=== PATIENT | male | born 1965 | race Hispanic/Latino ===

== ENCOUNTER 2016-12-25 19:37 | Inpatient (IN) | payer OTHER ==
--- NOTE | 2016-12-25 20:19 | ED PDOC ---
Arrival/HPI - General Historian: Patient - History of Present Illness Time/Duration: 1 week Symptom Onset: Gradual Symptom Course: Improving Quality: Aching, Dullness Severity Level: 6 Activities at Onset: Rest, Eating Context: Sitting <PARUL DEL TORO - Last Filed: 12/26/16 06:08> <Antoine Humphrey - Last Filed: 12/26/16 06:38> - General Chief Complaint: Abdominal Pain Time Seen by Provider: 12/25/16 19:48 - History of Present Illness Narrative History of Present Illness (Text): Patient is a 51 year old male who presents with complaints of abdominal pain and diarrhea which started 12/20 in the afternoon. Patient states he was at work and suddenly felt a sharp pain which was then followed by explosive diarrhea. Patient states the diarrhea was very dark with mucous. Patient states the next day he ate bananas in the morning which then triggered the same abdominal pain which was followed by diarrhea which this time was accompanied with bright red blood and mucous. States the following morning the same pain was present but this time had a solid bowel movement with blood. From 12/23 until 12/25 patient has had only one bowel movement which was non bloody and non mucosal. Does admit however to constant abdominal bloating and a dull ache which is non radiating, but localized diffusely through entire abdomen. States that discomfort is exacerbated with movement. . He states that these episodes of tarry diarrhea have occured monthly starting this year, but has not lasted this long. Patient admits to lack of appetite and decrease food intake. Patient has been keeping hydrated with water intake. Denies vomiting, headache, chest pain, shortness of breath, recent change in diet, sick contacts. PMD: Dr. Drew PMH: Hyperthyroid PSH: Spinal fusion FMH: Colon cancer- father Medications: none currently Allergies: NKDA 12/25/16 20:14 (PARUL DEL TORO) Past Medical History - Provider Review Nursing Documentation Reviewed: Yes - Psychiatric Hx Substance Use: No <PARUL DEL TORO - Last Filed: 12/26/16 06:08> Family/Social History - Physician Review Nursing Documentation Reviewed: Yes Family/Social History: Other Smoking Status: Never Smoked Hx Alcohol Use: No Hx Substance Use: No <PARUL DEL TORO - Last Filed: 12/26/16 06:08> <Antoine Humphrey - Last Filed: 12/26/16 06:38> Narrative Family History (Free Text): Colon Cancer: Father 12/25/16 20:39 (PARUL DEL TORO) Allergies/Home Meds <PARUL DEL TORO - Last Filed: 12/26/16 06:08> <KamAntoine - Last Filed: 12/26/16 06:38> Allergies/Adverse Reactions: Allergies No Known Allergies Allergy (Verified 12/25/16 19:47) Home Medications: Home Meds Medication Instructions Recorded Confirmed No Known Home Med 12/25/16 12/25/16 Review of Systems - Physician Review All systems were reviewed & negative as marked: Yes - Review of Systems Constitutional: Weight Change (5 lbs loss this week) Respiratory: absent: SOB Cardiovascular: absent: Chest Pain, Edema Gastrointestinal: Abdominal Pain, Stool Changes, Diarrhea, Nausea, Food Intolerance. absent: Vomiting Musculoskeletal: Back Pain Skin: absent: Rash, Pruritis Neurological: absent: Headache, Dizziness Psychiatric: absent: Anxiety <PARUL DEL TORO - Last Filed: 12/26/16 06:08> Physical Exam Vital Signs Reviewed: Yes Temperature: Afebrile Blood Pressure: Normal Pulse: Regular Respiratory Rate: Normal Appearance: Positive for: Well-Appearing Pain Distress: Moderate Mental Status: Positive for: Alert and Oriented X 3 - Systems Exam Head: Present: Atraumatic, Normocephalic Mouth: Present: Moist Mucous Membranes Respiratory/Chest: Present: Clear to Auscultation, Good Air Exchange Cardiovascular: Present: Regular Rate and Rhythm, Normal S1, S2 Abdomen: Present: Tenderness, Other (hyperactive bowel sounds) Lower Extremity: No: Edema Neurological: Present: CN II-XII Intact Skin: Present: Warm, Normal Color Psychiatric: Present: Alert, Oriented x 3 <PARUL DEL TORO - Last Filed: 12/26/16 06:08> Medical Decision Making - Lab Interpretations I have reviewed the lab results: Yes <PARUL DEL TORO - Last Filed: 12/26/16 06:08> - Lab Interpretations I have reviewed the lab results: Yes <Antoine Humphrey - Last Filed: 12/26/16 06:38> ED Course and Treatment: Assessment 51 year old male with complaints of abdominal pain and bloody diarrhea Plan - CT abdomen , results pending - CBC, CMP results pending - PT/PTT 12/25/16 20:42 12/25/16 21:40 (PARUL DEL TORO) Impression: Pt seen and evaluated with medical officer. Pt, whose past medical history includes hyperthyroidism, presented complaining of sharp abdominal pain and diarrhea/bright red hematochezia for 5 days. Aware and agree with HPI, clinical finding, plan, and management. Plan: - CT Abdomen and Pelvis -- Labs, T4, TSH -- Reassess and disposition 12/26/16 00:[address] Drew, who is aware and agrees with plan. Accepts pt in to his service. (Antoine Humphrey) - Lab Interpretations Lab Results: 12/25/16 20:30 12/25/16 20:30 Lab Results 12/25/16 20:30: PT 11.1, INR 1.03, APTT 29.2 12/25/16 20:30: Thyroxine (T4) 9.3, TSH 3rd Generation 1.51 12/25/16 20:30: Sodium 143, Potassium 3.6, Chloride 103, Carbon Dioxide 29, Anion Gap 15, BUN 14, Creatinine 0.8, Est GFR ( Amer) > 60, Est GFR (Non- Af Amer) > 60, Random Glucose 92, Calcium 9.1, Phosphorus 3.1, Magnesium 2.0, Total Bilirubin 0.4, AST 26, ALT 31, Alkaline Phosphatase 49, Total Protein 7.0 , Albumin 4.1, Globulin 3.0, Albumin/Globulin Ratio 1.4 12/25/16 20:30: WBC 5.7, RBC 4.34, Hgb 13.5 L, Hct 38.6 L, MCV 88.9, MCH 31.1, MCHC 35.0, RDW 12.2, Plt Count 235, MPV 9.5, Gran % 52.8, Lymph % (Auto) 36.6 H , [place] % (Auto) 9.1 H, Eos % (Auto) 1.2 L, Baso % (Auto) 0.3, Gran # 3.03, Lymph # 2.1, [place] # 0.5, Eos # 0.1, Baso # 0.02 - RAD Interpretation Radiology Orders: 12/25/16 20:20 ABDOMEN & PELVIS [ABD PELVIS PO & IV CONTRAST] [CT] Stat - Medication Orders Current Medication Orders: Sodium Chloride (Sodium Chloride 0.9%) 1,000 mls @ 100 mls/hr IV .Q10H STA Stop: 12/26/16 10:57 Last Admin: 12/26/16 01:34 Dose: 100 mls/hr Morphine Sulfate (Morphine) 2 mg IVP Q4H PRN PRN Reason: Pain, moderate (4-7) Ondansetron HCl (Zofran Inj) 4 mg IVP Q4H PRN PRN Reason: Nausea/Vomiting Discontinued Medications Metronidazole (Flagyl) 500 mg in 100 mls @ 100 mls/hr IVPB STAT STA PRN Reason: Protocol Stop: 12/26/16 01:12 Last Admin: 12/26/16 01:34 Dose: 100 mls/hr Ceftriaxone Sodium (Rocephin 1 Gram Ivpb) 1 gm in 100 mls @ 200 mls/hr IVPB STAT STA PRN Reason: Protocol Stop: 12/26/16 00:42 Last Admin: 12/26/16 00:27 Dose: 200 mls/hr Iohexol (Omnipaque 240 (50 Ml)) Confirm Administered Dose 50 ml .ROUTE .STK-MED ONE Stop: 12/25/16 20:42 Iohexol (Omnipaque 350 100 Ml) Confirm Administered Dose 350 mg .ROUTE .STK-MED ONE Stop: 12/25/16 22:38 - PA / FINISHER CARD TENDER / Resident Statement /DO has examined the patient and agrees with the treatment plan. <Antoine Humphrey - Last Filed: 12/26/16 06:38> Disposition/Present on Arrival - Present on Arrival Any Indicators Present on Arrival: No History of DVT/PE: No History of Uncontrolled Diabetes: No Urinary Catheter: No History of Decub. Ulcer: No History Surgical Site Infection Following: None - Disposition Have Diagnosis and Disposition been Completed?: Yes Disposition Time: 00:50 Patient Plan: Admission <PARUL DEL TORO - Last Filed: 12/26/16 06:08> - Present on Arrival Any Indicators Present on Arrival: No - Disposition Have Diagnosis and Disposition been Completed?: Yes <Antoine Humphrey - Last Filed: 12/26/16 06:38> - Disposition Diagnosis: Diverticulitis Disposition: HOSPITALIZED Patient Problems: Current Active Problems Problem Status Onset Diverticulitis Acute Condition: STABLE
[2016-12-25] MEDS ORDERED: Iohexol 240 (50 ml) ONE (20:41)
[2016-12-25 20:56] LABS: BASO # 0.02 K/mm3 (0.0-2.0); BASO % 0.3 % (0.0-3.0); EOS # 0.1 (0.0-0.7); EOS % 1.2 % (1.5-5.0); GRAN # 3.03 (1.4-6.5); GRAN % 52.8 % (50.0-68.0); HEMATOCRIT 38.6 % (42.0-52.0); LYMPH # 2.1 (1.2-3.4); LYMPH % 36.6 % (22.0-35.0); MEAN CELL VOLUME 88.9 fl (80.0-105.0); MEAN CORPUSCULAR HEMOGLOBIN 31.1 pg (25.0-35.0); MEAN PLATELET VOLUME 9.5 fl (7.0-11.0); MONO # 0.5 (0.1-0.6); MONO % 9.1 % (1.0-6.0); RED CELL DISTRIBUTION WIDTH 12.2 % (11.5-14.5); WHITE BLOOD COUNT 5.7 10^3/ul (4.5-11.0)
[2016-12-25 21:02] LABS: ALB/GLOB RATIO 1.4 (1.1-1.8); ALKALINE PHOSPHATASE 49 U/L (38-126); ALT/SGPT 31 U/L (7-56); AST/SGOT 26 U/L (17-59); BILIRUBIN,TOTAL 0.4 mg/dL (0.2-1.3); BLOOD UREA NITROGEN 14 mg/dL (7-21); CALCIUM 9.1 mg/dL (8.4-10.5); CARBON DIOXIDE 29 mmol/L (21-33); CHLORIDE 103 mmol/L (98-107); GFR AFRICAN-AMERICAN > 60; GLUCOSE,RANDOM 92 mg/dL (70-110); INR 1.03 (0.93-1.08); PARTIAL THROMBOPLASTIN TIME 29.2 Seconds (23.7-30.8); PHOSPHOROUS 3.1 mg/dL (2.5-4.5); POTASSIUM 3.6 mmol/L (3.6-5.0); SODIUM 143 mmol/L (132-148)
[2016-12-25 21:17] LABS: T4 9.3 ug/dL (5.5-11.0)
[2016-12-25 21:31] LABS: THYROID STIMULATING HORMONE 1.51 mIU/mL (0.46-4.68)
[2016-12-25] MEDS ORDERED: Iohexol 350 MG/100 ML VIAL ONE (22:37)
--- NOTE | 2016-12-26 00:11 | CT ---
EXAM: CT Abdomen and Pelvis With Intravenous Contrast CLINICAL HISTORY: 51 years old, male; Pain; Abdominal pain; Prior surgery; Surgery type: Back SX TECHNIQUE: Axial computed tomography images of the abdomen and pelvis with intravenous contrast. All CT scans at this facility use one or more dose reduction techniques, viz.: automated exposure control; ma/kV adjustment per patient size (including targeted exams where dose is matched to indication; i.e. head); or iterative reconstruction technique. Coronal and sagittal reformatted images were created and reviewed. CONTRAST: 97 mL of OMNI 350 administered intravenously. Oral contrast was also utilized. COMPARISON: No relevant prior studies available. FINDINGS: Lower thorax: The bilateral lung bases are clear. ABDOMEN: Liver: No acute findings. Gallbladder and bile ducts: The gallbladder is decompressed, without calcified stones. No significant intra- or extrahepatic biliary ductal dilation. Pancreas: Enhances homogeneously. No ductal dilation. No discrete mass. Spleen: No acute findings. Adrenals: No acute findings. Kidneys and ureters: No acute findings. No hydronephrosis or renal calculi. No discrete solid mass. PELVIS: Bladder: No acute findings. Reproductive: No acute findings. Appendix: The air and contrast filled appendix is of normal caliber (series 601, image 48) . ABDOMEN and PELVIS: Stomach and bowel: Mural thickening within the gastric cardia, possibly related to under distention. No obstruction. Trace mural thickening is identified within multiple loops of small bowel within the left upper quadrant. Mural thickening is also noted within the descending and rectosigmoid colons with mild inflammatory change - findings suggesting acute/early diverticulitis, for which clinical correlation is needed. Peritoneum: Dense free fluid is identified within the right hemipelvis, possibly related to the findings within the distal colon. Lymph nodes: Multiple minimally enlarged lymph nodes within the pelvis and retroperitoneum. Vasculature: Unremarkable. Bones: No acute fracture. IMPRESSION: Findings suggesting early/acute diverticulitis of the descending and rectosigmoid colons, as detailed above. No drainable fluid collection or perforation is detected.
[2016-12-26] MEDS ORDERED: metroNIDAZOLE IV 500 mg/100 ml 500 MG/100 ML BAG IVPB STA (00:13)
[2016-12-26] MEDS ORDERED: cefTRIAXone 1 gm 1 GM/100 ML BAG IVPB STA (00:13)
[2016-12-26] MEDS ORDERED: Sodium Chloride 0.9% 1,000 ML IV STA (00:58)
[2016-12-26] MEDS ORDERED: Morphine 2 mg/ml ISec IVP PRN (00:59)
[2016-12-26] MEDS: cefTRIAXone 1 gm 1 GM/100 ML BAG IVPB SCH (10:48)
--- NOTE | 2016-12-26 14:35 | CON ---
GASTROENTEROLOGY CONSULT DATE: 12/26/2016 This consult is for Dr. Lux. Dr. Robles covering. REASON FOR CONSULT: I have been asked to see this 51-year-old male who is admitted to the hospital with 5 days of increasing left lower quadrant abdominal pain, persistent diarrhea, and intermittent rectal bleeding. The patient denies any recent travel or ingestion of any unusual foods. Diarrhea and left-sided abdominal pain have continued for several days and have increased in severity over the last 24 hours, prompting the patient to come to the emergency room. CT scan of the abdomen and pelvis performed in the emergency room revealed mural thickening in the area of the left colon. There is also some nonspecific thickening of the stomach and small bowel most likely secondary to underdistention. The patient denies any fevers or chills. He has not had any rectal bleeding for several days. PAST MEDICAL HISTORY: Unremarkable. He does have a history of hyperthyroidism. PAST SURGICAL HISTORY: Notable for spinal fusion. FAMILY HISTORY: Notable for a father with colon cancer. SOCIAL HISTORY: He denies cigarette smoking or alcohol use. REVIEW OF SYSTEMS: A 14 point review of systems is pertinent for diarrhea, rectal bleeding, and left lower quadrant abdominal pain. PHYSICAL EXAMINATION GENERAL: Well-developed male lying in bed, in no acute distress. VITAL SIGNS: Reveal temperature of 98.6, blood pressure 126/91, heart rate 68. HEENT: Reveal sclerae to be white. Conjunctivae pink. Oral mucosa slightly dry. NECK: Supple. CHEST: Reveal lungs to be clear. HEART: Exam reveals a regular rate and rhythm. ABDOMEN: Soft, mild left lower quadrant tenderness. No rebound or guarding. EXTREMITIES: Show no edema. LABORATORY DATA: Reveal hemoglobin of 13.5, hematocrit of 38.6. White blood cell count 5.7. Chemistries reveal normal electrolytes. IMPRESSION: This is a 51-year-old male with 5 days of increasing left lower quadrant abdominal pain, diarrhea, intermittent rectal bleeding with a CT scan of the abdomen and pelvis showing mural thickening of the left colon. I suspect that this is an acute self-limited colitis with diverticulitis being another diagnostic possibility. RECOMMENDATIONS 1. We will request for stool C&S, O&P, and C. Diff. 2. Continue IV Rocephin and Flagyl. 3. Maintain on a clear liquid diet. Antoine Robles MD [facility] # [id number]
[2016-12-26] MEDS: metroNIDAZOLE IV 500 mg/100 ml 500 MG/100 ML BAG IVPB SCH ×2 (14:43→22:03)
--- NOTE | 2016-12-26 20:28 | HP ---
HISTORY OF PRESENT ILLNESS: A 51-year-old white male with no past medical history, does have a family history of colon cancer and diverticulitis. Patient had approximately 5 days of bloating, abdominal pain, diarrhea, bloody bowel movements without fever and chills. The patient came to the hospital, was evaluated with an CT of abdomen and pelvis. He was admitted on 12/25/2016. The findings were consistent with some early acute diverticulitis of the descending and rectosigmoid colon, possible colitis. The patient does have a history of autoimmune thyroiditis, Graves' disease and recently off medications. The patient's white count was normal at 5.7. His laboratory data was otherwise unremarkable. Thyroid was 1.51. The patient was seen in consultation with Dr. Robles who is covering for Dr. Lux. He is on IV antibiotics and a liquid diet and we will follow the patient in the clinic over the next 24 to 48 hours. PHYSICAL EXAMINATION GENERAL: Shows a well-developed but thin white male, in no apparent distress. HEENT: Essentially within normal limits. CARDIOVASCULAR: Regular sinus rhythm. No murmurs. CHEST: Clear to auscultation and percussion. ABDOMEN: Minimally distended. There is some tenderness in the right lower quadrant. Bowel sounds are hyperactive. There are no masses palpable. Minimal tenderness. EXTREMITIES: Without cyanosis, clubbing, or edema. NEUROLOGIC: Sensation is grossly intact. IMPRESSION: A 51-year-old white male presenting with abdominal pain, bright red blood per stool, diarrhea, rule out colitis versus diverticulitis. Nelson Drew MD
[2016-12-27] MEDS: metroNIDAZOLE IV 500 mg/100 ml 500 MG/100 ML BAG IVPB SCH ×3 (05:31→21:21)
[2016-12-27] MEDS: cefTRIAXone 1 gm 1 GM/100 ML BAG IVPB SCH (10:15)
[2016-12-27 16:16] VITALS: RESP 20
--- NOTE | 2016-12-27 16:24 | PN ---
SUBJECTIVE: The patient is a 51-year-old white male who presented to the hospital with diarrhea and blood in stool, was found on CAT scan to have colitis versus diverticulitis. The patient is afebrile. He has less abdominal pain. He has less diarrhea. He has seen no further bleeding in the stool. PHYSICAL EXAMINATION VITAL SIGNS: Stable. CHEST: Clear to auscultation and percussion. ABDOMEN: Nontender. He had some right lower and left lower quadrant tenderness previously. LABORATORY DATA: His white count is 5.7. His temperature is 98.2. PLAN: Is to increase his diet. Continue IV antibiotics. Will be discharged in the morning if stable on p.o. antibiotics. The patient was seen by Dr. Robles in consultation. He will need a colonoscopy in the near future. Nelson Drew MD
--- NOTE | 2016-12-28 02:53 | PN ---
This patient was seen and evaluated earlier. The patient's family was at bedside. No further episodes of bleeding. The patient is tolerating the diet. PHYSICAL EXAMINATION: VITAL SIGNS: Temperature is 98.5, blood pressure 131/87, pulse 79, respirations 20, and O2 saturations 100%. HEENT: Atraumatic, anicteric. NECK: Supple. HEART: S1 and S2 heard. LUNGS: Bilateral air entry present. ABDOMEN: Soft. There is no tenderness now. EXTREMITIES: No edema, no cyanosis. LABORATORY DATA: There is no recent labs today. IMPRESSION: This 51-year-old presented with acute onset of diarrhea, abdominal pain, and has intermittent episodes of bleeding per rectum. The patient's CT scan shows some mural thickening on the left colon. Clinically, it is more suggestive of colitis, infectious versus inflammatory. Other differential diagnosis should be considered, it should include neoplasia. The patient's acute diverticular disease is less likely to be the cause as the patient did have bleeding per rectum plus some mural thickening. The patient did have some episode before. Never had a colonoscopy. PLAN: The patient is tolerating the diet. The patient can complete antibiotic course as an outpatient and an elective colonoscopy in 3 to 4 weeks' time. The recommendations have been discussed with the patient at length, who understands. The patient's other comorbidities include autoimmune thyroiditis, Graves disease. Thank you very much for allowing me to participate in the care of the patient. Nav Lux MD
[2016-12-28] MEDS: metroNIDAZOLE IV 500 mg/100 ml 500 MG/100 ML BAG IVPB SCH (05:00)
[2016-12-28] MEDS: cefTRIAXone 1 gm 1 GM/100 ML BAG IVPB SCH (09:06)
--- NOTE | 2016-12-28 10:45 | CP.PCM.PN ---
Subjective - Date & Time of Evaluation Date of Evaluation: 12/28/16 Time of Evaluation: 09:15 - Subjective Subjective: Seen and examined at the bedside this morning, chart was reviewed. No acute overnight events reported. Patient out of bed and chair, tolerated his solids, denies nausea, vomiting, or abdominal pain. Weight said as 0/10. He did have a semi-loose bowel movements this morning, no reports of any blood per rectum. No new complaints. Objective - Vital Signs/Intake and Output Vital Signs (last 24 hours): Temp Pulse Resp BP Pulse Ox 98.5 F 79 20 131/87 100 12/27/16 16:00 12/27/16 16:00 12/27/16 16:00 12/27/16 16:00 12/27/16 16:00 Intake and Output: 12/28/16 12/28/16 06:59 18:59 Intake Total 1640 Balance 1640 - Medications Medications: Current Medications Metronidazole (Flagyl) 500 mg in 100 mls @ 100 mls/hr IVPB Q8 JESU PRN Reason: Protocol Last Admin: 12/28/16 05:00 Dose: 100 mls/hr Ceftriaxone Sodium (Rocephin 1 Gram Ivpb) 1 gm in 100 mls @ 100 mls/hr IVPB DAILY JESU PRN Reason: Protocol Last Admin: 12/28/16 09:06 Dose: 100 mls/hr Morphine Sulfate (Morphine) 2 mg IVP Q4H PRN PRN Reason: Pain, moderate (4-7) Ondansetron HCl (Zofran Inj) 4 mg IVP Q4H PRN PRN Reason: Nausea/Vomiting - Labs Labs: PT 11.1 Seconds (9.9-11.8) 12/25/16 20:30 INR 1.03 (0.93-1.08) 12/25/16 20:30 APTT 29.2 Seconds (23.7-30.8) 12/25/16 20:30 - Constitutional Appears: No Acute Distress - Head Exam Head Exam: NORMOCEPHALIC - Eye Exam Eye Exam: Normal appearance. absent: Scleral icterus - ENT Exam ENT Exam: Mucous Membranes Moist - Neck Exam Neck Exam: Normal Inspection - Respiratory Exam Respiratory Exam: Clear to Ausculation Bilateral, NORMAL BREATHING PATTERN. absent: Respiratory Distress - Cardiovascular Exam Cardiovascular Exam: +S1 - GI/Abdominal Exam GI & Abdominal Exam: Soft, Normal Bowel Sounds. absent: Distended, Guarding, Tenderness, Organomegaly, Rebound - Extremities Exam Extremities Exam: Normal Capillary Refill. absent: Calf Tenderness, Pedal Edema - Neurological Exam Neurological Exam: Alert, Awake, Oriented x3 - Skin Skin Exam: Dry, Warm Assessment and Plan - Assessment and Plan (Free Text) Assessment: Assessment: Acute onset diarrhea Resolved abdominal pain Colitis, infectious versus inflammatory Graves' disease Plan: Continue diet as tolerated Continue IV antibiotics Discussed with patient again regarding elective outpatient colonoscopy in 4 weeks time Follow up stool cultures that is currently pending Seen and discussed with Dr. Lux.
[2016-12-28 11:03] VITALS: BP 134/97; PULSE 66; TEMP 98; O2SAT 97
--- NOTE | 2016-12-29 05:42 | DS ---
HISTORY OF PRESENT ILLNESS: A 51-year-old white male admitted to the hospital with rectal bleeding, diarrhea, and abdominal pain, was found to have diverticulitis on CT. The patient was treated with IV Rocephin and Flagyl, did well, improved, bleeding subsided. The patient's pain subsided. The patient tolerated liquid diet well. He was seen in consultation by Dr. Lux, eventually to be discharged home in improved condition, to follow an outpatient course of Flagyl and Levaquin and to have an outpatient colonoscopy in 2 to 4 weeks. FINAL DISCHARGE DIAGNOSES: Acute diverticulitis, bright red blood per rectum. The patient was discharged home in improved condition. Nelson Drew MD
== END 2016-12-28 13:18 | disposition home or self-care (01) | DRG 392 ==
LOC: ED 19:37 → MERGE 12-26 00:57 → ERH 12-26 00:57 → 3RNO 12-26 02:10
PROVIDERS: ADMIT Internal Medicine; ATTEND Internal Medicine
DX: K57.32 Diverticulitis of large intestine without perforation or abscess without bleeding (principal); A09 Infectious gastroenteritis and colitis, unspecified; E05.00 Thyrotoxicosis with diffuse goiter without thyrotoxic crisis or storm; E06.3 Autoimmune thyroiditis; Z98.1 Arthrodesis status; Z80.0 Family history of malignant neoplasm of digestive organs